=== PATIENT | male | born 1980 | race Caucasian/White ===

== ENCOUNTER 2019-08-29 09:37 | Emergency (ER) | payer BC ==
[~2019-08-29] VITALS: Ht 185.4 cm; Wt 118.4 kg
[2019-08-29] MEDS ORDERED: SODIUM CHLORIDE 0.9% 1,000 ML IV ONE (10:00)
[2019-08-29] MEDS ORDERED: METOCLOPRAMIDE HCL 5MG/ml INJ 2ml VIAL IV ONE (10:00)
[2019-08-29] MEDS ORDERED: KETOROLAC TROMETH 30 MG/ML 1ML VIAL IV ONE (10:00)
[2019-08-29] MEDS ORDERED: metroNIDAZOLE 500MG/100ML 100 ML IV ONE (10:30)
[2019-08-29] MEDS ORDERED: cefTRIAXone 1GM/50ML D5W 50 ML IV ONE (10:30)
[2019-08-29 10:33] LABS: Basophils # (auto) 0.1 uL; Basophils % (auto) 0.7 % (0.0-2.0); Eosinophils # (auto) 0.3 uL; Eosinophils % (auto) 3.7 % (0.0-7.0); Hematocrit 48.6 % (41.0-53.0); Hemoglobin 17.1 g/dL (13.5-17.5); Lymphocytes # (auto) 2.2 uL; Lymphocytes % (auto) 29.6 % (10.0-50.0); Mean Corpuscular Hemoglobin 29.9 pg (28.0-32.0); Mean Corpuscular Hgb Conc. 35.2 g/dL (32.0-36.0); Mean Corpuscular Volume 84.8 fL (80.0-100.0); Monocytes # (auto) 0.4 uL; Monocytes % (auto) 5.8 % (0.0-12.0); Neutrophils # (auto) 4.4 uL; Neutrophils % (auto) 60.2 % (37.0-80.0); Platelet Count (auto) 181 10^3/uL (140-450); Red Blood Cells 5.73 10^6/uL (4.5-5.90); Red Cell Distribution Width 13.5 % (11.8-14.3); White Blood Cell 7.3 10^3/uL (4.4-10.8)
[2019-08-29 10:58] LABS: Albumin 4.1 g/dL (3.4-5.0); Calcium 8.9 mg/dL (8.5-10.1); Potassium 4.6 mmol/L (3.5-5.1)
[2019-08-29 11:01] LABS: BUN/Creatinine Ratio 14.9; Bilirubin, Total 0.8 mg/dL (0.2-1.0); Total Protein 7.6 g/dL (6.4-8.2)
[2019-08-29 11:14] LABS: Urine Bacteria NONE SEEN /hpf (None Seen); Urine Blood TRACE /uL (Negative); Urine Mucus FEW (None Seen); Urine Specific Gravity 1.018 (1.001-1.035); Urine WBC 1 /hpf (0 - 3)
[2019-08-29 11:57] VITALS: BP 128/88
== END 2019-08-29 11:59 | disposition home or self-care (01) ==
LOC: ER 09:37
DX: N20.1 Calculus of ureter (principal); K57.32 Diverticulitis of large intestine without perforation or abscess without bleeding; K76.0 Fatty (change of) liver, not elsewhere classified; E66.9 Obesity, unspecified; Z68.34 Body mass index [BMI] 34.0-34.9, adult
CPT/HCPCS: 36415; 74176; 80053; 81001; 85025; 96365; 96368; 99284; J0696; J3490; J7030

== ENCOUNTER 2020-12-12 03:37 | Emergency (ER) | payer BC ==
[~2020-12-12] VITALS: Ht 1 cm; Wt 120.2 kg
[2020-12-12 04:00] LABS: Urine WBC None Seen /hpf (0 - 3)
[2020-12-12] MEDS ORDERED: ONDANSETRON HCL 4 MG/2 ML VIAL IV ONE ×2 (04:00)
[2020-12-12] MEDS ORDERED: SODIUM CHLORIDE 0.9% 1,000 ML IV ONE ×2 (04:00→05:45)
[2020-12-12] MEDS ORDERED: fentaNYL CITRATE 100 MCG/2 ML VL IV ONE ×2 (04:00)
[2020-12-12] MEDS ORDERED: KETOROLAC TROMETH 30 MG/ML 1ML VIAL IV ONE ×2 (04:00)
[2020-12-12 04:13] LABS: Basophils # (auto) 0 10 ^3/uL (0-0.2); Basophils % (auto) 0.5 % (0.0-2.0); Eosinophils # (auto) 0.2 10 ^3/uL (0-0.8); Eosinophils % (auto) 1.7 % (0.0-7.0); Hematocrit 44.6 % (41.0-53.0); Hemoglobin 15.2 g/dL (13.5-17.5); Lymphocytes # (auto) 2.2 10 ^3/uL (0.4-5.4); Lymphocytes % (auto) 23.4 % (10.0-50.0); Mean Corpuscular Hemoglobin 29.4 pg (28.0-32.0); Mean Corpuscular Hgb Conc. 34.2 g/dL (32.0-36.0); Mean Corpuscular Volume 86.1 fL (80.0-100.0); Monocytes # (auto) 0.5 10 ^3/uL (0-1.3); Monocytes % (auto) 5.2 % (0.0-12.0); Neutrophils # (auto) 6.4 10 ^3/uL (1.6-8.6); Neutrophils % (auto) 69.2 % (37.0-80.0); Nucleated Red Blood Cells % 0.1 %; Platelet Count (auto) 229 10^3/uL (140-450); Red Blood Cells 5.18 10^6/uL (4.5-5.90); White Blood Cell 9.2 10^3/uL (4.4-10.8)
[2020-12-12 04:18] LABS: Urine Bacteria FEW /hpf (None Seen); Urine Blood 3+ /uL (Negative); Urine Mucus FEW (None Seen); Urine Specific Gravity 1.033 (1.001-1.035)
[2020-12-12 04:31] LABS: INR 0.95 (0.9-1.15)
[2020-12-12 04:34] LABS: Calcium 8.6 mg/dL (8.5-10.1); Lactic Acid w/Reflex 2.6 mmol/L (0.4-2.0); Potassium 3.8 mmol/L (3.5-5.1)
[2020-12-12 04:39] LABS: BUN/Creatinine Ratio 12.2; Bilirubin, Total 0.8 mg/dL (0.2-1.0); Magnesium 2.2 mg/dL (1.6-2.6); Total Protein 7.5 g/dL (6.4-8.2)
[2020-12-12] MEDS ORDERED: IOHEXOL 300 MG/ML 100ML BOTTLE IJ ONE (04:45)
[2020-12-12] MEDS ORDERED: cefTRIAXone 1GM/50ML D5W 50 ML IV ONE (07:30)
[2020-12-12] MEDS ORDERED: metroNIDAZOLE 500MG/100ML 100 ML IV ONE (07:30)
[2020-12-12] MEDS ORDERED: LABETALOL HCL 5 MG/ML 4ML SYRINGE IV ONE (07:30)
[2020-12-12 09:07] VITALS: BP 143/77
== END 2020-12-12 09:57 | disposition home or self-care (01) ==
LOC: ER 03:38
DX: K57.92 Diverticulitis of intestine, part unspecified, without perforation or abscess without bleeding (principal); N20.0 Calculus of kidney
CPT/HCPCS: 36415; 74177; 80053; 81001; 83605; 83690; 83735; 85025; 85610; 96361; 96365; 96368; 96375; 99285; J0696; J1885; J2405; J3010; J3490; Q9967